=== PATIENT | female | born 1950 | race Caucasian/White ===

== ENCOUNTER 2017-04-24 15:29 | Inpatient (IN) ==
[2017-04-24] MEDS: SUMAtriptan succinate 50 MG TABLET PO PRN (22:48)
[2017-04-24] MEDS: rOPINIRole 1 MG TABLET PO SCH (22:48)
[2017-04-24] MEDS: ALPRAZolam 0.5 MG TABLET PO SCH (22:49)
[2017-04-25] MEDS: traMADol 50 MG TABLET PO PRN ×2 (05:19→23:04)
[2017-04-25 05:39] LABS: Basophils # 0.1 K/mcL (0.0-0.2); Basophils % 0.5 %; Eosinophils # 0.2 K/mcL (0.0-0.6); Eosinophils % 1.8 %; Hemoglobin 12.8 g/dL (11.5-15.4); Immature Granulocytes % 0.4 % (0-4); Lymphocytes # 2.9 K/mcL (0.6-4.6); Lymphocytes % 31.1 %; Mean Corpuscular HGB Conc 33.7 g/dL (31.6-35.5); Mean Corpuscular Hemoglobin 33.5 pg (28.0-33.3); Mean Corpuscular Volume 99.5 fL (83.0-100.0); Mean Platelet Volume 10.5 fL (9.4-12.4); Monocytes # 0.7 K/mcL (0.0-1.3); Monocytes % 7.9 %; Neutrophils # 5.5 K/mcL (1.6-8.9); Platelet Count 238 K/mcL (140-400); Red Blood Count 3.82 M/mcL (3.82-4.97); Red Cell Distribution Width 12.6 % (11.5-14.5); Segmented Neutrophils % 58.3 %
[2017-04-25 05:42] LABS: INR 0.9; Prothrombin Time 9.9 Seconds (9.4-12.1)
[2017-04-25 05:44] LABS: Activated Partial Thrombo Time 27.1 Seconds (26.0-36.0)
[2017-04-25 05:54] LABS: BUN/Creatinine Ratio 15 (6-26); Blood Urea Nitrogen 13 mg/dL (7-20); Calcium 9.2 mg/dL (8.6-10.8); Carbon Dioxide 22 mEq/L (19-29); Chloride 107 mEq/L (98-109); Glucose 154 mg/dL (70-99); Osmolality,Calculated 295 (280-300); Sodium 141 mEq/L (136-145); eGFR For African Americans > 60 (> 60); eGFR For Non-African Americans > 60 (> 60)
[2017-04-25] MEDS: SUMAtriptan succinate 50 MG TABLET PO PRN ×2 (08:19→22:27)
[2017-04-25] MEDS: Famotidine 20 MG TABLET PO SCH (08:20)
[2017-04-25] MEDS: Aspirin 81 MG TAB.CHEW PO SCH (08:20)
[2017-04-25] MEDS: Topiramate 25 MG TABLET PO SCH (08:21)
[2017-04-25] MEDS: ALPRAZolam 0.5 MG TABLET PO SCH ×2 (08:21→21:06)
--- NOTE | 2017-04-25 18:50 | Internal Med History&Physical ---
Date of Encounter: 04/25/17 Time of Encounter: 18:48 Assessment and Plan (1) Physical deconditioning Current visit: Yes Status: Acute PT and OT to work on improving her strength, endurance, [place] (2) Migraine Current visit: Yes Status: Chronic Chronic headache. History of brain injury. History of migraine. On Ultram every 8 hours. Qualifiers: Migraine type: unspecified Status migrainosus presence: without status migrainosus Intractability: not intractable Qualified Code(s): G43.909 - Migraine, unspecified, not intractable, without status migrainosus Internal Medicine - H&P: HPI Admitted From: Intrahospital Transfer Plans for Post Hospital Care: Home History of present illness: Ms. Henderson is a 66 year old female On today's examination, the patient complains of mild headache. She is feeling better. Ultram was helping. She wants to go home. Past Med Surg Social Fam HX - Past Medical History Medical history: coronary artery disease, hypertension, myocardial infarction, other Psychiatric history: depression, prior suicide attempt - Past Surgical History Surgical History: non-contributory - Social History Smoking Status: Current every day smoker Smokeless Tobacco Status: No Alcohol use: none Drug use: none - Family History Mother History Unknown: Yes Father History Unknown: Yes Internal Medicine - H&P: Meds ALPRAZolam [Xanax 0.5 MG Tablet] 0.5 mg PO BID 04/24/17 [History] Aspirin 81 mg PO DAILY 04/24/17 [History] Atorvastatin [Lipitor] 20 mg PO HS 04/24/17 [History] Carvedilol [Coreg] 6.25 mg PO BIDWM 04/24/17 [History] Citalopram [CeleXA] 20 mg PO DAILY 04/24/17 [History] Dicyclomine [Bentyl] 20 mg PO QID 04/24/17 [History] Lisinopril [Zestril] 5 mg PO DAILY 04/24/17 [History] Potassium Chloride [K-Tab ER] 30 meq PO DAILY 04/24/17 [History] Ranitidine HCl [Zantac] 300 mg PO DAILY 04/24/17 [History] SUMAtriptan succinate [Imitrex] 50 mg PO Q2H PRN MDD 200 04/24/17 [History] Topiramate [Topamax] 25 mg PO DAILY 04/24/17 [History] Tramadol HCl [Ultram] 50 mg PO Q8H PRN 04/24/17 [History] rOPINIRole [Requip] 2 mg PO HS 04/24/17 [History] Allergies Penicillins [PCN] Allergy (Verified 04/24/17 21:40) See Comments morphine Adverse Reaction (Verified 04/24/17 21:40) Itching All Systems PM: A 10-system review of systems was performed and is negative for pertinent findings except as documented above in the HPI. - Constitutional Constitutional: fatigue - EENT Eyes: no change in vision, no discharge, no pain, no photophobia Nose, mouth and throat: no dysphagia, no nasal discharge, no neck pain, no sore throat - Respiratory Respiratory: no cough, no dyspnea, no wheezing, no excessive phlegm production - Gastrointestinal Gastrointestinal: no abdominal pain, no diarrhea, no hematemesis, no hematochezia, no melena, no nausea, no vomiting - Musculoskeletal Musculoskeletal ROS IM: arthralgias - Neurological Neurological ROS: no confusion, no convulsions, no focal weakness, no numbness, no tingling, no tremor(s) - Constitutional Vitals: Temp Pulse Resp BP Pulse Ox 97.9 F 82 18 117/72 97 04/25/17 15:00 04/25/17 15:00 04/25/17 15:00 04/25/17 15:00 04/25/17 15:00 General appearance: Present: A&O X 3, pleasant, no acute distress - Eye Eye exam: Present: PERRL, conjuntiva pink, sclera anicteric Pupils: Present: PERRL - Respiratory Respiratory exam: Present: CTAB. Absent: accessory muscle use, rales, rhonchi, wheezes - Cardiovascular Cardiovascular exam: Present: RRR, +S1, +S2. Absent: diastolic murmur, gallop, rubs, systolic murmur - GI/Abdominal GI/Abdominal exam: Present: normal bowel sounds, soft, no peritoneal signs. Absent: distended, tenderness - Extremities Exam Extremities exam: Present: warm, radial pulses palpable and symetrical. Absent : calf tenderness, cyanotic, pedal edema - Neurological Exam Neurological exam: Present: CN II-XII intact, oriented X3, no focal deficits. Absent: pronater drift, facial droop, speech deficit Internal Med - H&P Results - Labs CBC & Chem 7: 04/25/17 05:20 04/25/17 05:20 Labs: Short CBC 04/25/17 Range/Units 05:20 WBC 9.4 D (4.3-11.1) K/mcL Hgb 12.8 D (11.5-15.4) g/dL Hct 38.0 (35.3-44.9) % Plt Count 238 (140-400) K/mcL Neutrophils # 5.5 (1.6-8.9) K/mcL BMP 04/25/17 05:20 Sodium 141 Potassium 3.0 L Chloride 107 Carbon Dioxide 22 BUN 13 Creatinine 0.88 Glucose 154 H Calcium 9.2 - VTE Documentation of Mechanical Device: Graduated compression elastic hosiery
[2017-04-25] MEDS: rOPINIRole 1 MG TABLET PO SCH (21:05)
[2017-04-26] MEDS: traMADol 50 MG TABLET PO PRN ×2 (08:45→21:23)
[2017-04-26] MEDS: SUMAtriptan succinate 50 MG TABLET PO PRN ×2 (08:46→14:09)
[2017-04-26] MEDS: Famotidine 20 MG TABLET PO SCH (08:46)
[2017-04-26] MEDS: ALPRAZolam 0.5 MG TABLET PO SCH ×2 (08:46→21:23)
[2017-04-26] MEDS: Aspirin 81 MG TAB.CHEW PO SCH (08:46)
[2017-04-26] MEDS: Topiramate 25 MG TABLET PO SCH (08:47)
--- NOTE | 2017-04-26 09:08 | Internal Med Progress Note ---
Date of Encounter: 04/26/17 Time of Encounter: 09:06 - Assessment and plan (1) Physical deconditioning Current Visit: Yes Status: Acute Assessment and plan: PT OT working on improving endurance, safety and independent ADL (2) Migraine Current Visit: Yes Status: Chronic Assessment and plan: Still intractable. On Ultram. Qualifiers: Migraine type: unspecified Status migrainosus presence: without status migrainosus Intractability: not intractable Qualified Code(s): G43.909 - Migraine, unspecified, not intractable, without status migrainosus - Time Spent With Patient less than 15 minutes - Subjective Interval history: Still complains of chronic headache. Ultram is helping. No blurred vision. No numbness weakness. Feels stronger. Slept well last night - Constitutional Vitals: Temp Pulse Resp BP Pulse Ox 97.4 F L 87 20 141/79 99 04/26/17 07:22 04/26/17 07:22 04/26/17 07:22 04/26/17 07:22 04/26/17 07:22 General appearance: Present: A&O X 3, pleasant, no acute distress - Neck Neck exam general surgery: Present: supple, trachea midline. Absent: lymphadenopathy - Cardiovascular Cardiovascular exam: Present: RRR, +S1, +S2. Absent: diastolic murmur, gallop, rubs, systolic murmur - GI/Abdominal GI/Abdominal exam: Present: normal bowel sounds, soft, no peritoneal signs. Absent: distended, tenderness - Extremities Exam Extremities exam: Present: warm, radial pulses palpable and symetrical. Absent : calf tenderness, cyanotic, pedal edema - Neurological Exam Neurological exam: Present: CN II-XII intact, oriented X3, no focal deficits. Absent: pronater drift, facial droop, speech deficit Internal Medicine: Result - Labs CBC & Chem 7: 04/25/17 05:20 04/25/17 05:20 - ABG Interpretation ABG results: PT/INR, D-dimer PT 9.9 Seconds (9.4-12.1) 04/25/17 05:20 - VTE Documentation of Mechanical Device: Graduated compression elastic hosiery Consult Discharge Plan - Plan Referrals: NO,PCP [Primary Care Provider] -
[2017-04-26] MEDS: rOPINIRole 1 MG TABLET PO SCH (21:23)
[2017-04-27] MEDS: SUMAtriptan succinate 50 MG TABLET PO PRN ×5 (01:52→20:35)
[2017-04-27 05:30] LABS: BUN/Creatinine Ratio 12 (6-26); Blood Urea Nitrogen 9 mg/dL (7-20); Calcium 8.9 mg/dL (8.6-10.8); Carbon Dioxide 25 mEq/L (19-29); Chloride 106 mEq/L (98-109); Glucose 93 mg/dL (70-99); Osmolality,Calculated 290 (280-300); Potassium 3.9 mEq/L (3.5-4.5); Sodium 141 mEq/L (136-145); eGFR For African Americans > 60 (> 60); eGFR For Non-African Americans > 60 (> 60)
[2017-04-27 05:34] LABS: Basophils # 0.1 K/mcL (0.0-0.2); Basophils % 0.6 %; Eosinophils # 0.4 K/mcL (0.0-0.6); Eosinophils % 3.6 %; Hematocrit 36.1 % (35.3-44.9); Hemoglobin 11.9 g/dL (11.5-15.4); Immature Granulocytes % 0.6 % (0-4); Lymphocytes # 3.6 K/mcL (0.6-4.6); Lymphocytes % 37.2 %; Mean Platelet Volume 10.4 fL (9.4-12.4); Monocytes # 0.8 K/mcL (0.0-1.3); Monocytes % 7.9 %; Neutrophils # 4.9 K/mcL (1.6-8.9); Platelet Count 255 K/mcL (140-400); Red Blood Count 3.61 M/mcL (3.82-4.97); Segmented Neutrophils % 50.1 %
[2017-04-27] MEDS: traMADol 50 MG TABLET PO PRN ×2 (05:43→13:19)
[2017-04-27] MEDS: Famotidine 20 MG TABLET PO SCH (08:22)
[2017-04-27] MEDS: Aspirin 81 MG TAB.CHEW PO SCH (08:23)
[2017-04-27] MEDS: Topiramate 25 MG TABLET PO SCH (08:25)
[2017-04-27] MEDS: ALPRAZolam 0.5 MG TABLET PO SCH ×2 (08:25→20:35)
--- NOTE | 2017-04-27 13:38 | Internal Med Progress Note ---
Date of Encounter: 04/27/17 Time of Encounter: 13:36 - Assessment and plan (1) Seizures Current Visit: Yes Status: Acute Assessment and plan: Patient has a history of migraines. Apparently she had documented seizure in the ambulance. But from what we can gather from the referring documents from [place] no abnormalities were noted. 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 Patient insists on leaving and lunchtime today but I have not heard this recur - Time Spent With Patient 25 - 35 minutes - Subjective Interval history: Complains of some cephalgia medication. - Constitutional Vitals: Temp Pulse Resp BP Pulse Ox 98.0 F 83 18 112/71 96 04/27/17 07:01 04/27/17 07:01 04/27/17 07:01 04/27/17 07:01 04/27/17 07:01 General appearance: Present: A&O X 3, pleasant, no acute distress - Head Head exam: Present: atraumatic, normal inspection, normocephalic - Neck Neck exam general surgery: Present: supple, trachea midline. Absent: lymphadenopathy - Respiratory Respiratory exam: Present: CTAB. Absent: accessory muscle use, rales, rhonchi, wheezes - Cardiovascular Cardiovascular exam: Present: RRR, +S1, +S2. Absent: diastolic murmur, gallop, rubs, systolic murmur Internal Medicine: Result - Labs CBC & Chem 7: 04/27/17 04:55 04/27/17 04:55 Labs: Short CBC 04/27/17 Range/Units 04:55 WBC 9.7 (4.3-11.1) K/mcL Hgb 11.9 (11.5-15.4) g/dL Hct 36.1 (35.3-44.9) % Plt Count 255 (140-400) K/mcL Neutrophils # 4.9 (1.6-8.9) K/mcL BMP 04/27/17 04:55 Sodium 141 Potassium 3.9 Chloride 106 Carbon Dioxide 25 BUN 9 Creatinine 0.78 Glucose 93 Calcium 8.9 Stable - ABG Interpretation ABG results: PT/INR, D-dimer PT 9.9 Seconds (9.4-12.1) 04/25/17 05:20 - VTE Documentation of Mechanical Device: Graduated compression elastic hosiery Consult Discharge Plan - Plan Referrals: NO,PCP [Primary Care Provider] -
[2017-04-27] MEDS: Nicotine 21 MG PATCH.TD24 TD SCH (14:44)
[2017-04-27] MEDS: rOPINIRole 1 MG TABLET PO SCH (20:35)
[2017-04-28] MEDS: SUMAtriptan succinate 50 MG TABLET PO PRN ×4 (00:20→16:46)
[2017-04-28] MEDS: traMADol 50 MG TABLET PO PRN ×3 (00:24→20:43)
[2017-04-28 05:47] LABS: BUN/Creatinine Ratio 13 (6-26); Blood Urea Nitrogen 10 mg/dL (7-20); Calcium 8.7 mg/dL (8.6-10.8); Carbon Dioxide 24 mEq/L (19-29); Chloride 106 mEq/L (98-109); Glucose 108 mg/dL (70-99); Osmolality,Calculated 290 (280-300); Potassium 3.9 mEq/L (3.5-4.5); Sodium 140 mEq/L (136-145); eGFR For African Americans > 60 (> 60); eGFR For Non-African Americans > 60 (> 60)
[2017-04-28] MEDS: ALPRAZolam 0.5 MG TABLET PO SCH ×2 (08:38→20:43)
[2017-04-28] MEDS: Famotidine 20 MG TABLET PO SCH (08:39)
[2017-04-28] MEDS: Topiramate 25 MG TABLET PO SCH (08:39)
[2017-04-28] MEDS: Nicotine 21 MG PATCH.TD24 TD SCH (08:39)
[2017-04-28] MEDS: Aspirin 81 MG TAB.CHEW PO SCH (08:39)
[2017-04-28] MEDS ORDERED: Nicotine 21 MG PATCH.TD24 TD SCH (09:00)
--- NOTE | 2017-04-28 13:27 | Internal Med Progress Note ---
Date of Encounter: 04/28/17 Time of Encounter: 13:25 - Assessment and plan (1) Seizures Current Visit: Yes Status: Acute Assessment and plan: No evidence of recurrent seizure - Time Spent With Patient less than 15 minutes - Subjective Interval history: No major complaints. States the nicotine patch or helpi. Would like a prescription for nicotine patch when discharged - Constitutional Vitals: Temp Pulse Resp BP Pulse Ox 97.7 F 77 18 121/80 96 04/27/17 19:00 04/27/17 19:00 04/27/17 19:00 04/27/17 19:00 04/27/17 19:00 General appearance: Present: A&O X 3, pleasant, no acute distress - Head Head exam: Present: atraumatic, normal inspection, normocephalic - Neck Neck exam general surgery: Present: supple, trachea midline. Absent: lymphadenopathy - Respiratory Respiratory exam: Present: CTAB. Absent: accessory muscle use, rales, rhonchi, wheezes - Cardiovascular Cardiovascular exam: Present: RRR, +S1, +S2. Absent: diastolic murmur, gallop, rubs, systolic murmur Internal Medicine: Result - Labs CBC & Chem 7: 04/27/17 04:55 04/28/17 05:00 Labs: BMP 04/28/17 05:00 Sodium 140 Potassium 3.9 Chloride 106 Carbon Dioxide 24 BUN 10 Creatinine 0.78 Glucose 108 H Calcium 8.7 Labs stable - ABG Interpretation ABG results: PT/INR, D-dimer PT 9.9 Seconds (9.4-12.1) 04/25/17 05:20 - VTE Documentation of Mechanical Device: Graduated compression elastic hosiery Consult Discharge Plan - Plan Referrals: NO,PCP [Primary Care Provider] -
[2017-04-28] MEDS: rOPINIRole 1 MG TABLET PO SCH (20:42)
[2017-04-29] MEDS: SUMAtriptan succinate 50 MG TABLET PO PRN ×2 (02:18→06:14)
[2017-04-29] MEDS: Famotidine 20 MG TABLET PO SCH (08:43)
[2017-04-29] MEDS: Aspirin 81 MG TAB.CHEW PO SCH (08:43)
[2017-04-29] MEDS: Topiramate 25 MG TABLET PO SCH (08:44)
[2017-04-29] MEDS: Nicotine 21 MG PATCH.TD24 TD SCH (08:44)
[2017-04-29] MEDS: ALPRAZolam 0.5 MG TABLET PO SCH ×2 (08:45→21:18)
[2017-04-29] MEDS: traMADol 50 MG TABLET PO PRN ×2 (08:53→17:01)
--- NOTE | 2017-04-29 12:28 | Physical Med Progress Note ---
Date of Encounter: 04/29/17 Time of Encounter: 12:25 Physical Medicine-PN: Subj Interval history: PMR PCC Note Patient admitted secondary to medical deconditioning. Patient is progressing well with therapies. She refused OT/PT this am. Patient is SBA for ADLs. Patient is ambulating with SBA. She is SBA for transfers. Plan for discharge to home with continued PT. Will determine need for home health or outpatient therapy after discharge. Plan for discharge to home 04/29/17. - Constitutional Vitals: Vital Signs Temp Pulse Resp BP Pulse Ox 04/29/17 06:58 98.1 F 83 18 104/65 97 04/28/17 19:10 97.9 F 83 17 147/64 93 04/28/17 15:30 129/78 Intake and Output 04/28/17 04/29/17 04/29/17 23:59 07:59 15:59 Other: # Voids 1 1 Physical Medicine-PN: Obj Data - Labs CBC & Chem 7: 04/27/17 04:55 04/28/17 05:00 - ABG Interpretation ABG results: PT/INR, D-dimer PT 9.9 Seconds (9.4-12.1) 04/25/17 05:20 - VTE Documentation of Mechanical Device: Graduated compression elastic hosiery Consult Discharge Plan - Plan Referrals: NO,PCP [Primary Care Provider] -
--- NOTE | 2017-04-29 15:14 | Psychological Evaluation ---
Date of Encounter: 04/29/17 Time of Encounter: 11:00 History of Present Illness History of present illness: Ms. Henderson is a 66 year old female admitted to [facility] for inpatient rehabilitation following a recent fall off a ladder at her home in which she is suspected of sustaining a head injury. Ms. Henderson reported that this is her second TBI. She was transferred from [facility]. She was seen on this date to assess her current cognitive and emotional functioning. Past Medical History Medical history: Significant for chronic headaches/migraines, coronary artery disease, HTN, myocardial infarction, seizures and a previous TBI (date unknown). Ms. Henderson also reported that she underwent gastric bypass surgery (date unknown) and lost 100 lbs. She reportedly developed IBS following surgery and has been unable to work because of this. - Psychiatric History Additional Psychiatric History: Ms. Henderson denied history of psychiatric hospitalization or mental health counseling. She acknowledged that she has been treated for her "nerves" with Valium by her PCP. Medical records indicate a history of depression and a previous suicide attempt. She denied any family history of psychiatric or mental health issues but reported that her father was an alcoholic and he had Alzheimer's. Home Medications and Allergies ALPRAZolam [Xanax 0.5 MG Tablet] 0.5 mg PO BID 04/24/17 [History] Aspirin 81 mg PO DAILY 04/24/17 [History] Atorvastatin [Lipitor] 20 mg PO HS 04/24/17 [History] Carvedilol [Coreg] 6.25 mg PO BIDWM 04/24/17 [History] Citalopram [CeleXA] 20 mg PO DAILY 04/24/17 [History] Dicyclomine [Bentyl] 20 mg PO QID 04/24/17 [History] Lisinopril [Zestril] 5 mg PO DAILY 04/24/17 [History] Potassium Chloride [K-Tab ER] 30 meq PO DAILY 04/24/17 [History] Ranitidine HCl [Zantac] 300 mg PO DAILY 04/24/17 [History] SUMAtriptan succinate [Imitrex] 50 mg PO Q2H PRN MDD 200 04/24/17 [History] Topiramate [Topamax] 25 mg PO DAILY 04/24/17 [History] Tramadol HCl [Ultram] 50 mg PO Q8H PRN 04/24/17 [History] rOPINIRole [Requip] 2 mg PO HS 04/24/17 [History] Allergies Penicillins [PCN] Allergy (Verified 04/24/17 21:40) See Comments morphine Adverse Reaction (Verified 04/24/17 21:40) Itching Social History - Social History Social History: Ms. Henderson is and has two children (son and a daughter). She reported that her daughter and her daughter's two sons lived with Ms. Henderson and Ms. Henderson 's roommate until she moved out suddenly. Ms. Henderson stated that she now "only claims one child" (ie. her son). She also reported that since being in the hospital, she has requested that her roommate leave her home. She stated "He was in love with me" but she did not feel the same towards him. Her plan is to have one of her sisters live with her. Ms. Henderson is one of 12 children. She reported that she is only close to one of her sisters (Alexandra). Ms. Henderson is not working and has been on Social Security Disability for IBS. 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 Her social support system consists of her son, next door neighbors and her granddaughter (age 8). - Tobacco Use Smoking Status: Current every day smoker (but she reported that she quit since she was hospitalized and does not want to resume smoking post-discharge.) - Alcohol Use Alcohol Use: none Cognitive/Emotional Assessment - Cognitive Ability Additional Findings: Ms. Henderson was alert, attentive and fully oriented. Speech was clear, fluent and effective. Thought processes were logical, goal-directed and coherent. There were no signs of delusional ideation or perceptual disturbances. She was able to perform within the normal range on measures of confrontational naming, sentence repetition and attention. There were no apparent deficits with verbal comprehension. On a task of delayed verbal recall, she scored within the moderate to severe range. She had difficulty retrieving new information but her performance was assisted with recognition/multiple choice cues. Ms. Henderson presented as aware of her cognitive strengths and weaknesses and stated that she carries a notepad to write things down because of her impaired memory. - Emotional Status Additional Findings: Ms. Henderson was cooperative, friendly and pleasant. She acknowledged, however, that she wants to be discharged home as soon as possible. She was given information regarding rehab goals. She was reassured that the goal of rehab would be for her to return home and to community living when she was physically and cognitively ready/able. She described her current mood as "depressed" because of her desire to return home. She acknowledged that she has pain in her spine, head and both arms. She also reported that she has light sensitivity and hyperacusis. Assessment & Plan - Treatment Plan Treatment Plan/Recommendations: Ms. Henderson is aware of her memory impairment and uses notes and a assortment planner to compensate. She has a history of depression and reported that she is feeling depressed at this time because she wants to return home. She will be receiving additional therapy (OT/PT) post-discharge and should her mood remain depressed, a referral for additional psychological counseling can be made at that time. Procedures - Session Time Session Start Time: 11:00 Session Stop Time: 11:30
--- NOTE | 2017-04-29 15:20 | Discharge Summary ---
Date of Encounter: 04/29/17 Time of Encounter: 15:18 - Discharge Diagnosis (1) Seizures Priority: Primary Status: Acute - Discharge Medications Home Medications: ALPRAZolam [Xanax 0.5 MG Tablet] 0.5 mg PO BID 04/24/17 [History] Aspirin 81 mg PO DAILY 04/24/17 [History] Atorvastatin [Lipitor] 20 mg PO HS 04/24/17 [History] Carvedilol [Coreg] 6.25 mg PO BIDWM 04/24/17 [History] Citalopram [CeleXA] 20 mg PO DAILY 04/24/17 [History] Dicyclomine [Bentyl] 20 mg PO QID 04/24/17 [History] Lisinopril [Zestril] 5 mg PO DAILY 04/24/17 [History] Potassium Chloride [K-Tab ER] 30 meq PO DAILY 04/24/17 [History] Ranitidine HCl [Zantac] 300 mg PO DAILY 04/24/17 [History] SUMAtriptan succinate [Imitrex] 50 mg PO Q2H PRN MDD 200 04/24/17 [History] Topiramate [Topamax] 25 mg PO DAILY 04/24/17 [History] Tramadol HCl [Ultram] 50 mg PO Q8H PRN 04/24/17 [History] rOPINIRole [Requip] 2 mg PO HS 04/24/17 [History] Allergies/Adverse Reactions: Allergies Penicillins [PCN] Allergy (Verified 04/24/17 21:40) See Comments morphine Adverse Reaction (Verified 04/24/17 21:40) Itching Date of admission: 04/24/17 20:33 Primary care physician: PCP NO Consults: 04/24/17 21:53 Consult to Occupational Therapy [CONS] Routine Comment: Evaluate, develop and implement POC Reason for Consult: Evaluation and treatment Consult to Physical Therapy [CONS] Routine Comment: Evaluate, develop and implement POC Reason for Consult: Evaluation and treatment Consult to Recreational Therapy [CONS] Routine Comment: Evaluate, develop and implement POC Consult to Nanotechnology Engineering Technician [CONS] Routine Reason for SW Consult: Evaluation 04/29/17 14:09 Consult to Psychology [CONS] Routine Consulting Provider: Radha Chanel Reason for Consult: psy consult Time Notified: 15:00 Call Completed: No Discharging clinician: Chet Sierra Anticipated date of discharge: 04/30/17 - Patient Status Disposition: Home, Self-Care Condition: Good Functional capacity at discharge: uses cane/walker Overall status at discharge: patient is progressing back to baseline - Discharge Instructions Follow Up With: NO,PCP [Primary Care Provider] - - Diet and Activity Activity: ambulate only with your walker Diet: advance to your usual diet Interval History: There were concerned this patient had a witnessed seizure had a workup at [facility] did not reveal anything. And we found no problems here. Hospital course: Ms. Henderson is a 66 year old female Patient worked with therapy on a daily basis and decided that she will be discharged on the with a family member. She can do household distances and appears to be stable. - Time Spent with Patient Total time spent providing and/or coordinating discharge services: - Constitutional Vitals: Temp Pulse Resp BP Pulse Ox 98.1 F 83 18 104/65 97 04/29/17 06:58 04/29/17 06:58 04/29/17 06:58 04/29/17 06:58 04/29/17 06:58 General appearance: Present: A&O X 3, pleasant, no acute distress - Head Head exam: Present: atraumatic, normal inspection, normocephalic - Neck Neck exam general surgery: Present: supple, trachea midline. Absent: lymphadenopathy - Respiratory Respiratory exam: Present: CTAB. Absent: accessory muscle use, rales, rhonchi, wheezes - Cardiovascular Cardiovascular exam: Present: RRR, +S1, +S2. Absent: diastolic murmur, gallop, rubs, systolic murmur - VTE Documentation of Mechanical Device: Graduated compression elastic hosiery
[2017-04-29] MEDS: rOPINIRole 1 MG TABLET PO SCH (21:18)
[2017-04-30] MEDS: SUMAtriptan succinate 50 MG TABLET PO PRN ×3 (00:06→06:49)
[2017-04-30] MEDS: traMADol 50 MG TABLET PO PRN ×2 (03:15→11:27)
[2017-04-30] MEDS: Aspirin 81 MG TAB.CHEW PO SCH (09:07)
[2017-04-30] MEDS: Famotidine 20 MG TABLET PO SCH (09:07)
[2017-04-30] MEDS: Topiramate 25 MG TABLET PO SCH (09:07)
[2017-04-30] MEDS: ALPRAZolam 0.5 MG TABLET PO SCH (09:07)
[2017-04-30] MEDS: Nicotine 21 MG PATCH.TD24 TD SCH (09:07)
[2017-04-30 10:02] VITALS: BP 133/83
== END 2017-04-30 13:42 | disposition home or self-care (01) | DRG 946 ==
LOC: INPGRE 20:33
PROVIDERS: ADMIT Internal Medicine; ATTEND Internal Medicine